=== PATIENT | female | born 1990 | race Caucasian/White ===

== ENCOUNTER 2017-02-26 11:09 | Day surgery (SDC) | payer OTHER ==
[2017-02-23 14:53] VITALS: BMI 32.7
[~2017-02-26 11:09] MED LIST: LACTATED RINGERS 1,000 ML IV SCH
[2017-02-26] MEDS ORDERED: LIDOCAINE 1% 20 ML VIAL (10MG/ML) FOR IV START INTRADERMA ONE (12:00)
[2017-02-26 12:17] VITALS: TEMP 96.8
[2017-02-26] MEDS ORDERED: PROPOFOL 10 MG/ML 20 ML VIAL IV ONE (13:25)
[2017-02-26] MEDS ORDERED: LIDOCAINE 1% INJ 10MG/ML (20 ML MDV) ONE (13:25)
--- NOTE | 2017-02-26 13:57 | P.PCN ---
Date of Procedure: 02/26/17 Procedure(s) Performed: Procedure: Esophagogastroduodenoscopy and biopsy. Preoperative diagnosis: Chronic atypical chest pain and possible gastroesophageal reflux. Postoperative diagnosis: 1. Small sliding hiatal hernia with no obvious esophagitis or complete complicated reflux disease. 2. Mild antral gastritis. 3. Multiple biopsies obtained from the duodenum, antrum and esophagus. Preparation and sedation: Was provided by anesthesia. Brief clinical history: The patient is a 26-year-old female who has had issues of chest pains over the years. Initially suspected to be "growing pains"and more recently reflux disease was considered. However, she said that she felt worse after a month of treatment with Prevacid. This evaluation is to assess for peptic ulcer disease, reflux or other etiology. Procedure: With the patient on her left lateral decubitus position and after informed consent and adequate sedation, I passed the Olympus-GIF 160 video upper endoscope through the cricopharyngeus down the esophagus. GE junction was around 36 cm from the incisors and there was a small sliding hiatal hernia. The esophagus did not show any obvious erosions or ulcers. There were no strictures or Velez's esophagus. The endoscope was then passed into the stomach which was insufflated with air and inspected in detail including the retroflex view in the cardia. There was some mottling and erythema in the antrum but no ulcers or erosions. Pyloric channel, duodenal bulb, post bulbar area and descending duodenum appeared within normal limits. Because of her symptoms, I obtained multiple biopsies from the duodenum, antrum and esophagus then the endoscope was withdrawn. The patient tolerated the procedure well. Plan: The patient was reassured. Will await biopsy results. She will follow- up with you as planned and further plans can be made based on her course and biopsy results. Would be happy to see in the future if her symptoms persist or change.
[2017-02-26 14:27] VITALS: BP 128/75; PULSE 80; RESP 20
== END 2017-02-26 14:41 | disposition home or self-care (01) ==
LOC: ORWHC2ENDO 11:09
DX: K21.0 Gastro-esophageal reflux disease with esophagitis (principal); G89.29 Other chronic pain; K44.9 Diaphragmatic hernia without obstruction or gangrene; K29.50 Unspecified chronic gastritis without bleeding; Z79.899 Other long term (current) drug therapy
CPT/HCPCS: 81025; 88305; 88342; 43239; J2001; J2704

== ENCOUNTER → 2017-04-02 | Outpatient (CLI) | payer OTHER ==
--- NOTE | 2017-04-02 11:22 | US ---
EXAMINATION TYPE: US gallbladder DATE OF EXAM: 04/02/2017 8:15 AM COMPARISON: NONE CLINICAL HISTORY: R07.89 chest pain. EXAM MEASUREMENTS: Liver Length: 14.9 cm Gallbladder Wall: 0.3 cm CBD: 0.2 cm Right Kidney: 10.0 x 4.7 x 4.6 cm Pancreas: limited evaluation due to overlying bowel content, visualized portions appear wnl Liver: heterogeneous Gallbladder: no evidence of stones Evidence for sonographic Arroyo's sign: no CBD: wnl Right Kidney: no evidence of hydronephrosis or mass IMPRESSION: Correlate for possible fatty infiltration of the liver versus hepatocellular disease.
== END | disposition home or self-care (01) ==
LOC: RADUSWWP 07:50
DX: R07.89 Other chest pain (principal)
CPT/HCPCS: 76705